=== PATIENT | male | born 1960 | race Caucasian/White ===

== ENCOUNTER 2024-11-03 08:36 | Emergency (ER) | payer MEDICARE, SELFPAY ==
--- NOTE | ~2024-11-03 | XR_ITS ---
EXAMINATION: XR chest 2V DATE: 11/03/2024 09:24 INDICATION: Cough. TECHNIQUE: Frontal and lateral views of the chest were obtained. COMPARISON: None. FINDINGS: There is no pneumonia, pleural effusion, or pneumothorax. The heart size is normal. IMPRESSION: 1. No acute cardiopulmonary disease. Reviewed, dictated and finalized at location A. [facility]
--- OUTSIDE RECORDS SUMMARY | 2024-11-03 08:39 | XMS_ITS | CONTINUITY OF CARE DOCUMENT ---
Author Name grover ness Address Unknown Organization [facility] Office Address [address] [place] [address] Phone [phone] Care Team Providers Care Obgyn Nurse Name Role Phone grover ness Unavailable Unavailable
--- OUTSIDE RECORDS SUMMARY | 2024-11-03 08:45 | XMS_ITS | CONTINUITY OF CARE DOCUMENT ---
Author Name grover ness Address Unknown Organization [facility] Office Address [address] [place] [address] Phone [phone] Care Team Providers Care Gas Engineer Name Role Phone grover ness Unavailable Unavailable
--- OUTSIDE RECORDS SUMMARY | 2024-11-03 08:45 | XMS_ITS | Clinical Summary ---
Author Organization [facility] Address [address] [place] [address] Phone Care Team Providers Care Edge Dyer Name Role Phone Allan Denton MD Primary Care Provider [phone] Allergies No known active allergies Medications labetalol (NORMODYNE) 200 MG Tablet Take by mouth daily. Active pravastatin (PRAVACHOL) 20 MG Tablet Take by mouth daily. Active lisinopril (PRINIVIL, ZESTRIL) 10 MG Tablet Take by mouth daily. Active lisinopril (PRINIVIL, ZESTRIL) 20 MG Tablet 08/29/2021 Active ASPIRIN 81 PO Take by mouth daily. Active Active Problems Problem Noted Date Diagnosed Date Nicotine dependence Overview (08/12/2015): Continuous Inguinal hernia unilateral, non-recurrent Overview (08/12/2015): Without mention of obstruction or gangrene, left Immunizations Immunization Administration Dates Next Due Influenza Vaccine 11/06/2013 Social History Tobacco Use Types Packs/Day Years Used Date Smoking Tobacco: Former Cigarettes Smokeless Tobacco: Never Alcohol Use Standard Drinks/Week Comments Yes 0 (1 standard drink = 0.6 oz pur e alcohol) Rarely Sex and Gender Information Value Date Recorded Sex Assigned at Not on file Legal Sex Male 8:06 PM CDT Gender Identity Not on file Sexual Orientation Not on file Last Filed Vital Signs Vital Sign Reading Time Taken Comments Blood Pressure 156/88 09/07/2021 2:56 PM CANDY CUTTER HAND Pulse 64 09/07/2021 2:56 PM CANDY CUTTER HAND Temperature 36.2 C (97.1 F) 09/07/2021 2:56 PM CANDY CUTTER HAND Respiratory Rate 14 09/07/2021 2:56 PM CANDY CUTTER HAND Oxygen Saturation 98% 09/07/2021 2:56 PM CANDY CUTTER HAND Inhaled Oxygen Concentration - - Weight 88.5 kg (195 lb) 09/07/2021 2:56 PM CANDY CUTTER HAND Height 177.8 cm (5' 10 ) 09/07/2021 2:56 PM CANDY CUTTER HAND Body Mass Index 27.98 09/07/2021 2:56 PM CANDY CUTTER HAND Plan of Treatment Health Maintenance Due Date Last Done Comments Hepatitis C Virus (HCV) Screening 1960 TdaP Immunization 1958 Colonoscopy 2003 Colorectal Cancer Screening 2003 Cologuard 2008 Immunochemical Fecal Occult Blood 2008 Pneumococcal Immunization (5 0+ years) (1 of 1 - PCV) 2008 Zoster Immunization (1 of 2) 2008 PSA Discussion 2013 Influenza Immunization (#1) 2024 11/06/2013 SARS-COV-2 Immunization ( season) 2024 11/24/2020, 10/21/2020 Respiratory Syncytial Virus (RSV) Immunization (Adult) (1 - 1-dose 75+ series) 2033 Hepatitis B Immunization Aged Out No longer eligible based on patient's age to complete this topic Meningococcal Immunization (ACWY) Aged Out No longer eligible b ased on patient's age to complete this topic Rotavirus Immunization Aged Out No lo nger eligible based on patient's age to complete this topic Care Teams Edge Dyer Relationship Specialty Start Date End Date Allan [place] [address] PCP - General Internal Medicine 09/07/21
--- OUTSIDE RECORDS SUMMARY | 2024-11-03 08:45 | XMS_ITS | Encounter Summary ---
Author Organization [facility] Address 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
--- OUTSIDE RECORDS SUMMARY | 2024-11-03 08:45 | XMS_ITS | Clinical Summary ---
Author Organization [facility] Address [address] Attn: Epic Prelude ADT OBED JARQUIN [address] Care Team Providers Care Packaging Supervisor Name Role Phone Unavailable Primary Care Provider Unavailabl e Allergies Active Allergy Reactions Criticality Noted Date Comments No Known Allergies 12/23/2003 Medications LOVASTATIN 40 MG TAB 1 Every Day 30.00 3 01/04/2006 Active LABETALOL 100 MG TAB 1/2 Two Times A Day 30.00 0 07/03/2006 Active ZOCOR 40 MG TAB 1 Every Day 90.00 3 12/15/2005 Active Active Problems Problem Noted Date Diagnosed Date Tobacco use disorder 03/23/2004 Other and unspecified hyperlipidemia 01/13/2004 Undiagnosed cardiac murmurs 01/13/2004 Unspecified essential hypertension 12/23/2003 Resolved Problems Problem Noted Date Diagnosed Date Resolved Date Headache(784.0) 12/23/2003 02/26/2008 Acute nasopharyngitis (common cold) 12/23/2003 02/26/2008 Social History Tobacco Use Types Packs/Day Years Used Date Smoking Tobacco: Never Assessed Sex and Gender Information Value Date Recorded Sex Assigned at Not on file 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 Gender Identity Not on file Sexual Orientation Not on file Last Filed Vital Signs Vital Sign Reading Time Taken Comments Blood Pressure 120/70 03/23/2004 1:45 PM CDT Pulse - - Temperature - - Respiratory Rate - - Oxygen Saturation - - Inhaled Oxygen Concentration - - Weight 88 kg (194 lb) 03/23/2004 1:45 PM CDT Height - - Body Mass Index - - Plan of Treatment Health Maintenance Due Date Last Done Comments DTAP/TDAP/TD VACCINES (1 - Tdap) 1977 COLORECTAL SCREENING 2003 Colorectal Cancer Screening 2003 FIT-DNA Q 3 years 2003 FIT/FOBT Q 1 year 2003 Flex Sig/CT Colonography Q 5 years 2003 PNEUMOCOCCAL VACCINE 65+ YEARS (1 of 1 - PCV) 09/19/19 ZOSTER VACCINE (1 of 2) 2008 INFLUENZA VACCINE (#1) 2024 RSV VACCINE (60+ or ) (1 - 1-dose 75+ series) 2033
--- OUTSIDE RECORDS SUMMARY | 2024-11-03 08:46 | XMS_ITS | Encounter Summary ---
Author Organization [facility] Address 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
--- OUTSIDE RECORDS SUMMARY | 2024-11-03 08:46 | XMS_ITS | Encounter Summary ---
Author Organization [facility] Address 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 HISTORY: HISTORY: 272.4-HYPERLIPIDEMIA Currently the patient is off all medication. 305.1-TOBACCO ABUSE The patient continues to smoke regularly despite the awareness that this is harmful. 401.9-HYPERTENSION, UNSPECIFIED The patient is tolerating the medication. PHYSICAL EXAMINATION: CONSTITUTIONAL: GENERAL APPEARANCE: Healthy appearing patient in no distress. NECK/THYROID: Trachea midline. No thyroid enlargement, tenderness, or mass. No supraclavicular or cervical adenopathy. RESPIRATORY: Clear to auscultation and percussion. Normal respiratory effort. CARDIOVASCULAR: CARDIAC: Regular rhythm. No murmurs, rubs, or gallops. ARTERIAL: Aortic pulses of normal amplitude with no bruits. EDEMA/VARICOSITIES OF EXTREMITIES: No edema or varicosities. GASTROINTESTINAL: ABDOMEN: Soft, non-tender, without masses. Bowel sounds active. LIVER/SPLEEN/KIDNEY: No hepatosplenomegaly, tenderness or nodularity. Kidneys not palpable. ASSESSMENT/PLAN: 272.4-HYPERLIPIDEMIA refill med 305.1-TOBACCO ABUSE rec cessation 401.9-HYPERTENSION, UNSPECIFIED cont med, rec repeat echo, pt wants to wait until ins LAB ORDERS: 3Mo Order number: [id number] Test Ordered: ALT 823 Order number: [id number] Test Ordered: LIPID PANEL 7600 Order number: [id number] Test Ordered: BASIC METABOLIC PANEL W/ GLOMERULAR FILTRATION RATE, ESTIMATED (EGFR) [id number] pt qu sleep apnea sx, consider sleep study RETURN VISIT : Patient instructed to return in 3 months. Electronically Signed by: Gabriele Toussaint MD on December documented in this encounter Plan of Treatment Not on file documented as of this encounter Visit Diagnoses Not on filedocumented in this encounter
--- OUTSIDE RECORDS SUMMARY | 2024-11-03 08:46 | XMS_ITS | Referral Summary ---
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 Phone Allan Denton MD Primary Care Provider [phone] Encounters Date Type Department Care Team Description 11/01/2024 Orders Only [facility] [address] [phone] Allan Denton MD 10/31/2024 Telephone [facility] [address] [phone] Allan Denton MD Symptom Based Call 09/30/2024 Telephone [facility] Gastroenterology at [address] [place] [phone] Godfrey Quesada MA 09/24/2024 11:15 AM WINDOWS ADMINISTRATOR Anesthesia Event [address] [address] Mariajose Stack MD 09/24/2024 10:30 AM WINDOWS ADMINISTRATOR - 09/24/2024 11:00 AM WINDOWS ADMINISTRATOR Surgery [address] [address] Donato Morley, DO COLON REMOVAL SNARE 09/24/2024 9:24 AM WINDOWS ADMINISTRATOR - 09/24/2024 12:49 PM WINDOWS ADMINISTRATOR Hospital Encounter [address] [address] Donato Morley, Encounter for screening colonoscopy Discharge Disposition: Discharge to home or self care 09/18/2024 Telephone [facility] Gastroenterology at [facility] [address] [facility] [address] [place] [phone] Godfrey Quesada MA 09/10/2024 10:02 AM WINDOWS ADMINISTRATOR - 09/10/2024 11:59 PM WINDOWS ADMINISTRATOR Hospital Encounter [facility] [address] [place] [address] Abdominal pain Discharge Disposition: Discharge to home or self care 09/09/2024 Telephone [facility] [address] [place] [address] Sara Camarillo 08/16/2024 Telephone [facility] [address] [place] [phone] Allan Denton MD 08/13/2024 10:15 AM WINDOWS ADMINISTRATOR Lab [facility] [address] [place] [phone] Essential hypertension; Abdominal pain 08/13/2024 9:30 AM WINDOWS ADMINISTRATOR Office Visit [facility] [address] [place] [phone] Sara Zambrano NP Essential hypertension (Primary Dx); Abdominal pain; Mixed hyperlipidemia; Right elbow pain; Thumb pain, left; History of lymphoma; Class 1 obesity due to excess calories with serious comorbidity and body mass index (BMI) of 30.0 to 30.9 in adult from Last 3 Months Allergies No known active allergies Medications atorvastatin (LIPITOR) 20 mg tablet Take 1 tablet (20 mg total) by mouth daily 90 tablet 4 4 01/29/20 25 Active lisinopriL (PRINIVIL,ZESTRIL ) 30 mg tabletIndications :Essential hypertension Take 1 tablet (30 mg total) by mouth daily 100 tablet 4 4 Active aspirin 81 mg enteric coated tablet Take by mouth daily Active hydroCHLOROthiazi de 12.5 mg tablet Take 1 tablet (12.5 mg total) by mouth daily 90 tablet 1 4 12/03/20 25 Active oseltamivir (TAMIFLU) 75 mg capsule Take 1 capsule (75 mg total) by mouth 2 (two) times a day for 5 days 10 capsule 5 11/06/19 25 Active Active Problems Problem Noted Date Diagnosed Date Abdominal pain 08/13/2024 Assessment & Plan (08/13/2024 2:47 PM WINDOWS ADMINISTRATOR): No palpable abnormality, nontender. Constant dull ache present for the past 1 week, located right of umbilicus. Not associated with meals. No changes in bowel patterns or weight. CT ordered today. Will check additional labs today. Instructed patient to follow up immediately or present to the ER if experiencing any new or worsening symptoms. Right elbow pain 08/13/2024 Assessment & Plan (08/13/2024 2:50 PM WINDOWS ADMINISTRATOR): No known injury. Patient reports he does frequently plays golf. Symptoms consistent with golfer's/tennis elbow. Recommended trial of meloxicam and will follow-up if no improvement History of lymphoma 08/13/2024 Assessment & Plan (08/13/2024 2:50 PM WINDOWS ADMINISTRATOR): Denies any fevers, night sweats, changes in appetite or weight loss. Mid back pain 07/12/2024 Assessment & Plan (07/12/2024 4:35 PM CDT): Trial meloxicam for the next few weeks and then can continue as needed. Also prescribed tizanidine every 6 hours p.r.n.. Encouraged patient to avoid aggravating activity. Will check x-ray and plan accordingly. Encounter for screening colonoscopy 06/28/2024 Colon cancer screening 01/29/2024 Assessment & Plan (07/12/2024 4:35 PM CDT): Updated referral to GI Assessment & Plan (01/29/2024 2:07 PM CDT): Referral to GI for screening colonoscopy. Encounter for Medicare annual wellness exam 01/10 Assessment & Plan (01/29/2024 2:08 PM CDT): Visit preventive in nature. We reviewed medications, chronic conditions, risk factors, lifestyle recommendations. Reviewed immunization recommendations. Follow-up in 1 year for annual wellness. Essential hypertension 01/29/2024 Assessment & Plan (08/13/2024 2:46 PM WINDOWS ADMINISTRATOR): Blood pressure is elevated today. Patient reports he took his medications this morning as prescribed, lisinopril 30 mg tablet. Discussed that uncontrolled blood pressure could be contributing to symptoms of fatigue as well as visual disturbance. He denies any chest pain or shortness and breath. Will add HCTZ 12.5 mg daily, encouraged patient to monitor BP at home. Can return to office in 1 week for nurse visit/BP check. Encouraged heart healthy lower sodium diet. Reviewed signs and symptoms warranting immediate evaluation. Assessment & Plan (01/29/2024 2:08 PM CDT): Above goal. Will increase lisinopril to 30 mg daily. Encouraged to monitor blood pressure at home. Red flags reviewed. Hyperlipidemia 01/25/2014 Overview (12/15/2016): HYPERLIPIDEMIA NEC/NOS Assessment & Plan (08/13/2024 2:49 PM WINDOWS ADMINISTRATOR): Concerned that symptoms may be related to change in statin, patient switched from pravastatin to atorvastatin 6 months ago. Encouraged increase water intake/hydration. Recommended 1st managing blood pressure and addressing abdominal pain prior to adjusting medications. If no improvement in joint pain with meloxicam will hold statin medication Assessment & Plan (01/29/2024 2:07 PM CDT): Not at goal. Will switch to atorvastatin. Monitor for side effects. Will recheck fasting lipid panel upon return. Keep up the great work with lifestyle changes! Former smoker 01/25/2014 Overview (12/17/2016): TOBACCO USE DISORDER Assessment & Plan (01/29/2024 2:08 PM CDT): Quit smoking 9 years ago. Hypertension 01/25/2014 Overview (12/17/2016): HYPERTENSION NOS Resolved Problems Problem Noted Date Diagnosed Date Resolved Date Need for influenza vaccination 01/29/2024 01/29/2024 Immunizations Immunization Administration Dates Next Due Influenza, Split 11/06/2013 Influenza, Unspecified 08/13/2024(Deferr ed: Patient Refused),06/18/2024(Deferred: Patient Refused),12/10/2023(Deferred: Patient Refused),06/11/2023(Deferred: Patient Refused),06/11/2023(Deferred: Patient Refused),06/11/2022(Deferred: Patient Refused),06/11/2022(Deferred: Patient Refused),06/11/2020(Deferred: Patient Refused),10/22/2019(Deferred: Patient Refused),09/11/2018(Deferred: Patient Refused),09/12/2016(Deferred: Patient Refused) Moderna SARS-CoV-2 Monovalen t Vaccination (12+ YRS) 11/24/2020,10/21/2020 Pneumococcal Conjugate Pcv20 01/29/2024(Deferred : Patient Refused) Social History Tobacco Use Types Packs/Day Years Used Date Smoking Tobacco: Former Smokeless Tobacco: Never Tobacco Cessation:Counseling Given: Not Answered Comments:Smoking History Packs/day: 1.5 Packs, Patient states that he chews nicotine gum 10/22/2019 Alcohol Use Standard Drinks/Week Comments Not Currently 0 (1 standard drink = 0.6 oz pur e alcohol) AUDIT-C Answer Date Recorded Q1: How often do you have a drink containing alc ohol? 2-3 times a week 09/24/2024 Q2: How many drinks containi ng alcohol do you have on a typical day when you are drinking? 3 or 4 09/24/2024 Frequency of Binge Drinking Not on file 09/11 PHQ-2 Answer Date Recorded PHQ-2 Total Score (If total score is 3 or more points, staff should administer the PHQ-9) 0 08/13/2024 Personal Safety Answer Date Recorded Have you ever been in or are you currently in a harmful physical or emotional relationship or is someone making you feel afraid or unsafe? Denies 09/24/2024 Sex and Gender Information Value Date Recorded Sex Assigned at Not on file Legal Sex Male 4:02 PM WINDOWS ADMINISTRATOR Gender Identity Not on file Sexual Orientation Not on file Last Filed Vital Signs Vital Sign Reading Time Taken Comments Blood Pressure 119/73 09/24/2024 12:25 PM WINDOWS ADMINISTRATOR Pulse 69 09/24/2024 12:25 PM WINDOWS ADMINISTRATOR Temperature 36.9 C (98.5 F) 09/24/2024 12:25 PM WINDOWS ADMINISTRATOR Respiratory Rate 18 09/24/2024 12:25 PM WINDOWS ADMINISTRATOR Oxygen Saturation 98% 09/24/2024 12:25 PM WINDOWS ADMINISTRATOR Inhaled Oxygen Concentration - - Weight 89.4 kg (197 lb) 09/24/2024 9:32 AM WINDOWS ADMINISTRATOR Height 175.3 cm (5' 9 ) 09/24/2024 9:32 AM WINDOWS ADMINISTRATOR Body Mass Index 29.09 09/24/2024 9:32 AM WINDOWS ADMINISTRATOR Plan of Treatment Not on file Procedures Procedure Name Priority Date/Time Associated Diagnosis Comments SURGICAL PATHOLOGY STAT 09/24/2024 11 :48 AM WINDOWS ADMINISTRATOR Encounter for screening colonoscopy ENDO ADD ON COLON BIOPSY 09/24/2024 11:10 AM WINDOWS ADMINISTRATOR Encounter for screening colonoscopy COLON REMOVAL SNARE 09/24/2024 1 1:10 AM WINDOWS ADMINISTRATOR Encounter for screening colonoscopy COLONOSCOPY 09/24/2024 9:[address] ABDOMEN PELVIS WO CONTRAST Schedule Routine, Read Routine (OP Routine) 09/10/2024 10:26 AM WINDOWS ADMINISTRATOR Abdominal pain EGFR Routine 08/13/2024 10:15 AM WINDOWS ADMINISTRATOR Abdominal pain Essential hypertension DIFFERENTIAL AUTO Routine 08/13/2024 10: 15 AM WINDOWS ADMINISTRATOR Abdominal pain Essential hypertension COMPREHENSIVE METABOLIC PANEL Routine 08/13/2024 10:15 AM WINDOWS ADMINISTRATOR Abdominal pain Essential hypertension CBC WITH AUTO DIFFERENTIAL Routine 08/13/2024 10:15 AM WINDOWS ADMINISTRATOR Abdominal pain Essential hypertension LIPASE Routine 08/13/2024 10:15 AM WINDOWS ADMINISTRATOR Abdominal pain AMYLASE Routine 08/13/2024 10:15 AM WINDOWS ADMINISTRATOR Abdominal pain TSH Routine 08/13/2024 10:15 AM WINDOWS ADMINISTRATOR Essential hypertension T4, FREE Routine 08/13/2024 10:15 AM WINDOWS ADMINISTRATOR Essential hypertension PSA SCREEN Routine 01/29/2024 2:06 PM CDT Prostate cancer screening from Last 3 Months or Most Recently Relevant to Health Maintenance Results * Surgical pathology (09/24/2024 11:48 AM WINDOWS ADMINISTRATOR) Tissue (Polyp(s), colon/colorectal, esophageal, gastric) 09/24/2024 11:48 AM WINDOWS ADMINISTRATOR Tissue (Polyp(s), colon/colorectal, esophageal, gastric) 09/24/2024 11:48 AM WINDOWS ADMINISTRATOR Tissue (Polyp(s), colon/colorectal, esophageal, gastric) 09/24/2024 11:48 AM WINDOWS ADMINISTRATOR Narrative PATHOLOGY [facility] - 09/26/2024 2:59 PM WINDOWS ADMINISTRATOR EPIC results best viewed via link to PDF [facility] Department of Pathology [address] [place] [address] Note to Patients: This report may contain a detailed description of human tissue sent by a health care provider to the laboratory for pathologic evaluation. The content of this report is essential for diagnosis and may provide important critical findings. This information may be unfamiliar to patients to review without a medical professional present. It is advised that the patient review this report in the presence of a health care provider who can answer questions and explain the details. Final Report Patient Name: NASIR FORD Address: [address] [place] [address] Gender: M : 1960 (Age: 64) Service: Gastro Location: [facility] #: [id number] Patient Type: [facility] Taken: 09/24/2024 Received: 09/25/2024 Accessioned: 09/25/2024 Reported: 09/26/2024 Physician(s):Dr. Donato Morley, D.O. Diagnosis: A. Ascending colon polyp, biopsy: - Tubular adenoma. - Negative for high-grade dysplasia. B. Descending colon polyp, biopsy: - Mucosal tag. C. Sigmoid colon polyp x2, biopsy: - Hyperplastic polyp x2. Abram Alejandre M.D. Report Electronically Reviewed and Signed Out By Abram Alejandre M.D. 09/26/2024 14:59:03 Specimen(s) Received: A: Ascending polyp x 1 B: Descending polyp x 1 C: Sigmoid polyp x 2 Microscopic Description: A. Sections show a tubular adenoma. There is no evidence of high-grade dysplasia or invasive carcinoma. B. Sections show fragments of benign colonic mucosa. There is no evidence of hyperplastic change or dysplasia. The findings are most consistent with a mucosal tag. C. Sections show a hyperplastic polyp x2. No features of a sessile serrated adenoma are seen. There is no evidence of dysplasia or malignancy. Clinical History: Screening colonoscopy. Gross Description: The specimen is submitted in three formalin containers labeled NASIR FORD . A. The first container is labeled ascending polyp . It is a 2 mm rios tissue fragment. All in A. B. The second container is labeled descending polyp . It is 1 strip of rios tissue measuring 1 cm. All in B. C. The third container is labeled sigmoid polyp x2 . It is 2 fragments of rios tissue between 3 and 4 mm. All in C. T.A. Gena Christy., P.A./Analia Persaud M.D. REPORT IMAGES AND SCANNED DOCUMENTS, IF INCLUDED, ONLY VIEWABLE IN PDF VERSION OF REPORT The performance characteristics of some immunohistochemical stains, fluorescence in-situ hybridization tests and immunophenotyping by flow cytometry cited in this report (if any) were determined by the Surgical Pathology Department at [facility] as part of an ongoing senior supplier quality engineer program and in compliance with federally mandated regulations drawn from the Clinical Laboratory Improvement Act of 1988 (CLIA '88). Some of these tests rely on the use of analyte specific reagents and are subject to specific labeling requirements by the US Food and Drug Administration. Such diagnostic tests may only be performed in a facility that is certified by the Department of Health and Human Services as a high complexity laboratory under CLIA '88. The FDA has determined that such clearance or approval is not necessary. This test is used for clinical purposes. It should not be regarded as investigational or for research. Nevertheless, federal rules concerning the medical use of analyte specific reagents require that the following disclaimer be attached to the report: This test was developed and its performance characteristics determined by the Surgical Pathology Department [facility]. It has not been cleared or approved by the U. S. Food and Drug Administration. Note for decalcified specimens: This assay has not been validated on decalcified tissues. Results should be interpreted with caution given the possibility of false negativity on decalcified specimens Donato Morley DO LAB PATHOLOGY ORDERABLES Final Result PATHOLOGY [facility] [address] [place] [address] * Colonoscopy (09/24/2024 9:25 AM WINDOWS ADMINISTRATOR) Anatomical Region Laterality Modality Other Narrative Procedure Note Donato Morley DO - 09/24/2024 9:25 AM CST [facility] Patient Name: Nasir Ford Procedure Date: 09/24/2024 9:25 AM Date of : 1960 Admit Type: Outpatient Age: 64 Gender: Male Attending MD: Donato Morley D.O. Room: [facility] END[facility]COPY ROOM 2 Note Status: Finalized Patient Profile: Refer to note in patient chart for documentation of history and physical. Procedure: Colonoscopy Indications: Screening for colorectal malignant neoplasm, Thisis the patient's first colonoscopy Referring MD: Allan Denton M.D. Providers: Donato Morley D.O. Impression: - The examined portion of the ileum was normal. - One 4 mm polyp in the proximal ascending colon, removed with a cold snare. Resected andretrieved. - One 5 mm polyp in the descending colon, removedwith a cold snare. Resected and retrieved. - Two 2 to 3 mm polyps in the sigmoid colon,removed with a jumbo cold forceps. Resected andretrieved. - Internal hemorrhoids. Recommendation: - Discharge patient to home. - Resume previous diet. - Continue present medications. - Await pathology results. - Repeat colonoscopy date to be determined after pending pathology results are reviewed for surveillance. - Return to primary care physician PRN. Medicines: Monitored Anesthesia Care Complications: No immediate complications. Estimated Blood Loss: Estimated blood loss was minimal. Procedure: Pre-Anesthesia Assessment: - As per anesthesia. The benefits, risks and alternatives of theprocedure and sedation were discussed and informed consentwas obtained. All questions were answered. Please referto the signed informed consent document in the medical record. The bowel preparation used was Miralax and bisacodyl tablets via split dose instruction. The scope was passed under direct vision. TheColonoscope [id number] was introduced through the anus and advanced to the 5 cm into the ileum. The colonoscopy was performed without difficulty. The patient tolerated the procedure well. The qualityof the bowel preparation was good. The terminal ileum, ileocecal valve, appendiceal orifice, and rectumwere photographed. Findings: The perianal and digital rectal examinations were normal. The terminal ileum appeared normal. A 4 mm polyp was found in the proximal ascending colon. The polyp was removed with a cold snare. Resection and retrieval were complete. A 5 mm polyp was found in the descending colon. The polyp was removed with a cold snare. Resection and retrieval were complete. Two polyps were found in the sigmoid colon. The polyps were 2 to 3 mmin size. These polyps were removed with a jumbo cold forceps. Resectionand retrieval were complete. Internal hemorrhoids were found. The hemorrhoids were small. No additional abnormalities were found on retroflexion. Electronically signed by Donato Morley M.D. Donato Morley D.O. 09/24/2024 11:52:56 AM Number of Addenda: 0 Note Initiated On: 09/24/2024 9:25 AM Procedure Code(s): --- Professional --- 61607, Colonoscopy, flexible; with removal of tumor(s), polyp(s), or other lesion(s) by snare technique 31012, 59, Colonoscopy, flexible; with biopsy, single or multiple --- Technical --- 79154, Colonoscopy, flexible; with removal of tumor(s), polyp(s), or other lesion(s) by snare technique 73306, 59, Colonoscopy, flexible; with biopsy, single or multiple Diagnosis Code(s): --- Professional --- Z12.11, Encounter for screening for malignant neoplasm of colon K64.8, Other hemorrhoids D12.2, Benign neoplasm of ascending colon D12.4, Benign neoplasm of descending colon D12.5, Benign neoplasm of sigmoid colon --- Technical --- Z12.11, Encounter for screening for malignant neoplasm of colon K64.8, Other hemorrhoids D12.2, Benign neoplasm of ascending colon D12.4, Benign neoplasm of descending colon D12.5, Benign neoplasm of sigmoid colon CPT copyright 2020 [employer]. All rights reserved. The codes documented in this report are preliminary and upon lumber buyer reviewmay be revised to meet current compliance requirements. Recognized by the [employer] for promoting quality in endoscopy us Donato Morley DO ENDOSCOPY PROCEDURES Final Res ult * CT Abdomen Pelvis WO Contrast (09/10/2024 10:26 AM WINDOWS ADMINISTRATOR) Anatomical Region Laterality Modality Body N/A Computed Tomogra phy 09/15/2024 1:20 PM WINDOWS ADMINISTRATOR Narrative 09/15/2024 1:29 PM WINDOWS ADMINISTRATOR EXAM DESCRIPTION: CT ABDOMEN PELVIS WO CONTRAST REASON FOR STUDY: Abdominal pain, acute, nonlocalized RUQ pain for the last 4-5 weeks. TECHNIQUE: CT scan of the abdomen and pelvis performed without intravenous and without oral contrast using helical scanning technique. Reconstructed coronal and sagittal MPR images reviewed. All images stored on PACS. Automated exposure control was used as a dose optimization technique for this examination. COMPARISON: None FINDINGS: The sensitivity for detection of visceral lesions is diminished without the use of intravenous contrast. LOWER CHEST: There is atelectasis/scarring in the left lower lobe. No other significant pulmonary abnormalities. No effusion. LIVER: Normal size. There are numerous cysts in the liver. GALLBLADDER: Poorly distended. BILE DUCTS: No intrahepatic or extrahepatic ductal dilatation. SPLEEN: Normal size. No focal lesions. PANCREAS: No identified cystic or solid masses. No significant calcifications. No adjacent inflammation or peripancreatic fluid collections. Pancreatic duct not dilated. ADRENALS: Normal. KIDNEYS/URINARY TRACT: There is a 3.5 cm right renal cyst. A smaller cyst is present in the lower pole. No stones. No hydronephrosis or hydroureter. Urinary bladder is unremarkable. GI: No dilated bowel loops. No obvious wall thickening. Normal appendix. Scattered diverticular disease without diverticulitis. PERITONEUM: No ascites or free air. RETROPERITONEUM: No mass or adenopathy. REPRODUCTIVE: No significant abnormality. VASCULATURE: Atherosclerotic disease in the aorta and iliacs. MUSCULOSKELETAL: No significant abnormality. OTHER: Is an umbilical hernia containing fat. There is a large inguinal containing fat.. IMPRESSION: No evidence of acute disease in the abdomen or pelvis. Diverticulosis. Hepatic and renal cysts. Umbilical and right inguinal hernias containing fat. Additional findings as above. THIS IS AN ELECTRONICALLY VERIFIED FINAL REPORT 09/15/2024 1:29 PM - Electronically signed by Princess Church M.D. LL: SHIRLENE Report ID: [id number] Reading Location: [id number] Procedure Note Princess Church MD - 09/15/2024 EXAM DESCRIPTION: CT ABDOMEN PELVIS WO CONTRAST REASON FOR STUDY: Abdominal pain, acute, nonlocalized RUQ pain for the last 4-5 weeks. TECHNIQUE: CT scan of the abdomen and pelvis performed without intravenousand without oral contrast using helical scanning technique. Reconstructed coronal and sagittal MPR images reviewed. All images stored on PACS.Automated exposure control was used as a dose optimization technique for this examination. COMPARISON: None FINDINGS: The sensitivity for detection of visceral lesions is diminished withoutthe use of intravenous contrast. LOWER CHEST: There is atelectasis/scarring in the left lower lobe. Noother significant pulmonary abnormalities. No effusion. LIVER: Normal size. There are numerous cysts in the liver. GALLBLADDER: Poorly distended. BILE DUCTS: No intrahepatic or extrahepatic ductal dilatation. SPLEEN: Normal size. No focal lesions. PANCREAS: No identified cystic or solid masses. No significant calcifications. No adjacent inflammation or peripancreatic fluidcollections. Pancreatic duct not dilated. ADRENALS: Normal. KIDNEYS/URINARY TRACT: There is a 3.5 cm right renal cyst. A smallercyst is present in the lower pole. No stones. No hydronephrosis orhydroureter. Urinary bladder is unremarkable. GI: No dilated bowel loops. No obvious wall thickening. Normal appendix. Scattered diverticular disease without diverticulitis. PERITONEUM: No ascites or free air. RETROPERITONEUM: No mass or adenopathy. REPRODUCTIVE: No significant abnormality. VASCULATURE: Atherosclerotic disease in the aorta and iliacs. MUSCULOSKELETAL: No significant abnormality. OTHER: Is an umbilical hernia containing fat. There is a large inguinal containing fat.. IMPRESSION: No evidence of acute disease in the abdomen or pelvis. Diverticulosis. Hepatic and renal cysts. Umbilical and right inguinal hernias containing fat. Additional findings as above. THIS IS AN ELECTRONICALLY VERIFIED FINAL REPORT 09/15/2024 1:29 PM - Electronically signed by Princess Church M.D. LL: SHIRLENE Report ID: [id number] Reading Location: [place] [address] Sara Zambrano NP IMG CT PROCEDURES Final Res ult * eGFR (08/13/2024 10:15 AM WINDOWS ADMINISTRATOR) eGFR >90 >=60 mL/min/1. 73 m2 Comment: Interpretive Data Reference Interval Normal >/= 90 mL/min/1.73m2 Mildly decreased* 60 - 89 mL/min/1.73m2 Mildly to moderately decreased 45 - 59 mL/min/1.73m2 Moderately to severely decreased 30 - 44 mL/min/1.73m2 Severely decreased 15 - 29 mL/min/1.73m2 Kidney Failure < 15 mL/min/1.73m2 *Relative to young adult level Estimated glomerular filtration rate is determined by the 2020 CKD-EPI equation recommended by the National Kid[employer] (A Unifying Approach to GFR Estimation: Recommendations of the NKF-ASK Task Force on Reassessing the Inclusion of Race in Diagnosing Kidney Disease, JASN 2020). The CKD-EPI equation should not be used for patients with unstable renal function and has not been validated in children and those over 70. Current interpretive data was last reviewed 2021. Testing performed by: [address] [address] Blood 08/13/2024 10:1 5 AM WINDOWS ADMINISTRATOR 08/13/2024 3:53 PM WINDOWS ADMINISTRATOR Sara Zambrano POSTAL SORTING OFFICER LAB BLOOD ORDERABLES Final Result [facility] ([place]) 1 [facility] [place] [address] * Differential, auto (08/13/2024 10:15 AM WINDOWS ADMINISTRATOR) Neutrophil abs 3.6 1.5 - 6.5 K/cumm Comment:Testing performed by : [address] [address] Imm gran abs 0.0 0.0 - 0.1 K/cumm [facility] ([place]) Comment:Testing performed by : [facility], [address] [place] [address]., [address] Lymphocyte abs 1.3 0.8 - 3.3 K/cumm [facility] ([place]) Comment:Testing performed by : [facility], [address] [place] [address]., [address] Monocyte abs 0.4 0.2 - 0.8 K/cumm [facility] ([place]) Comment:Testing performed by : [address] [address] Eosinophil abs 0.1 0.0 - 0.5 K/cumm [facility] ([place]) Comment:Testing performed by : [facility], [address] [place] [address]., [address] Basophil abs 0.0 0.0 - 0.1 K/cumm [facility] ([place]) Comment:Testing performed by : [facility], [address] [place] [address]., [address] Neutrophil pct 65.6 % [facility] ([place]) Comment: Interpretive Data Percent cell count reference ranges are not reported, since discordance with absolute values may lead to misinterpretation of CBC data. Current Interpretive Data was last revised on 2017. Testing performed by: [facility], [address] [place] [address]., [address] Imm gran pct 0.2 % [facility] ([place]) Comment: Interpretive Data Percent cell count reference ranges are not reported, since discordance with absolute values may lead to misinterpretation of CBC data. Current Interpretive Data was last revised on 2017. Testing performed by: [facility], [address] [place] [address]., [address] Lymphocyte pct 23.1 % [facility] ([place]) Comment: Interpretive Data Percent cell count reference ranges are not reported, since discordance with absolute values may lead to misinterpretation of CBC data. Current Interpretive Data was last revised on 2017. Testing performed by: [address] [address] Monocyte pct 8.1 % [facility] ([place]) Comment: Interpretive Data Percent cell count reference ranges are not reported, since discordance with absolute values may lead to misinterpretation of CBC data. Current Interpretive Data was last revised on 2017. Testing performed by: [facility], [address] [place] [address]., [address] Eosinophil pct 2.4 % [facility] ([place]) Comment: Interpretive Data Percent cell count reference ranges are not reported, since discordance with absolute values may lead to misinterpretation of CBC data. Current Interpretive Data was last revised on 2017. Testing performed by: [address] [address] Basophil pct 0.6 % [facility] ([place]) Comment: Interpretive Data Percent cell count reference ranges are not reported, since discordance with absolute values may lead to misinterpretation of CBC data. Current Interpretive Data was last revised on 2017. Testing performed by: [address] [address] Blood 08/13/2024 10:1 5 AM WINDOWS ADMINISTRATOR 08/13/2024 2:56 PM WINDOWS ADMINISTRATOR Sara Zambrano POSTAL SORTING OFFICER LAB BLOOD ORDERABLES Final Result [facility] ([place]) 1 [facility] [place] [address] * CBC with auto differential (08/13/2024 10:15 AM WINDOWS ADMINISTRATOR) WBC 5.4 3.8 - 9.9 K/cumm Comment:Testing performed by : [address], [address] Hgb 13.7 13.0 - 17.5 g/dL [facility] ([place]) Comment:Testing performed by : [address], [address] Hct 41.7 38.9 - 50.3 % [facility] ([place]) Comment:Testing performed by : [address], [address] Plt 236 150 - 400 K/cumm [facility] ([place]) Comment:Testing performed by : [address], [address] MPV 10.5 9.1 - 12.3 fL [facility] ([place]) Comment:Testing performed by : [address], [address] RBC 4.52 4.30 - 5.80 M/cumm [facility] ([place]) Comment:Testing performed by : [address], [address] MCV 92.3 81.3 - 96.4 fL [facility] ([place]) Comment:Testing performed by : [address], [address] MCH 30.3 27.1 - 33.3 pg [facility] ([place]) Comment:Testing performed by : [facility], [address] [place] [address], [address] MCHC 32.9 32.3 - 35.7 g/dL [facility] ([place]) Comment:Testing performed by : [facility], [address] [place] [address], [address] RDW CV 11.9 11.1 - 14.9 % [facility] ([place]) Comment:Testing performed by : [facility], [address] [place] [address], [address] RDW SD 40.3 35.7 - 48.1 fL [facility] ([place]) Comment:Testing performed by : [facility], [address] [place] [address], [address] NRBC abs 0.00 0.00 - 0.01 K/cumm [facility] ([place]) Comment:Testing performed by : [facility], [address] [place] [address], [address] Blood 08/13/2024 10:1 5 AM WINDOWS ADMINISTRATOR 08/13/2024 2:56 PM WINDOWS ADMINISTRATOR Sara Zambrano POSTAL SORTING OFFICER LAB BLOOD ORDERABLES Final Result [facility] ([place]) 1 [facility] [employer] [place] [address] * TSH (08/13/2024 10:15 AM WINDOWS ADMINISTRATOR) Thyroid Stimulating Hormone 2.56 0.30 - 4.20 mcIUnit/mL Comment:Testing performed by : [facility], [address] [place] [address], [address] Blood 08/13/2024 10:1 5 AM WINDOWS ADMINISTRATOR 08/13/2024 2:56 PM WINDOWS ADMINISTRATOR Sara Zambrano POSTAL SORTING OFFICER LAB BLOOD ORDERABLES Final Result [facility] ([place]) 1 [facility] [place] [address] * T4, free (08/13/2024 10:15 AM WINDOWS ADMINISTRATOR) Free T4 1.14 0.90 - 1.70 ng/dL Comment:Testing performed by : [facility], [address] [place] [address], [address] Blood 08/13/2024 10:1 5 AM WINDOWS ADMINISTRATOR 08/13/2024 2:56 PM WINDOWS ADMINISTRATOR Sara Zambrano NP LAB BLOOD ORDERABLES Final Result [facility] ([place]) 1 [place] [address] * Lipase (08/13/2024 10:15 AM WINDOWS ADMINISTRATOR) Pathologist [facility] Lipase 20 10 - 99 Units/L Comment:Testing performed by : [address], [address] Blood 08/13/2024 10:1 5 AM WINDOWS ADMINISTRATOR 08/13/2024 2:56 PM WINDOWS ADMINISTRATOR Sara Zambrano POSTAL SORTING OFFICER LAB BLOOD ORDERABLES Final Result [facility] ([place]) 1 [facility] [place] [address] * Amylase (08/13/2024 10:15 AM WINDOWS ADMINISTRATOR) Amylase 44 30 - 99 Units/L Comment:Testing performed by : [address], [address] Blood 08/13/2024 10:1 5 AM WINDOWS ADMINISTRATOR 08/13/2024 2:56 PM WINDOWS ADMINISTRATOR Sara Zambrano NP LAB BLOOD ORDERABLES Final Result [facility] ([place]) 1 [facility] [place] [address] * Comprehensive metabolic panel (08/13/2024 10:15 AM WINDOWS ADMINISTRATOR) Sodium 138 135 - 145 mmol/L Comment:Testing performed by : [facility], [address] [place] [address]., [address] Potassium, pl 4.3 3.3 - 4.9 mmol/L [facility] ([place]) Comment:Testing performed by : [facility], [address] [place] [address]., [address] Chloride 101 97 - 110 mmol/L [facility] ([place]) Comment:Testing performed by : [facility], [address] [place] [address], [address] CO2 27 22 - 32 mmol/L [facility] ([place]) Comment:Testing performed by : [address], [address] Anion gap 10 2 - 15 mmol/L [facility] ([place]) Comment:Testing performed by : [address], [address] BUN 17 6 - 25 mg/dL [facility] ([place]) Comment:Testing performed by : [facility], [address] [place] [address], [address] Creatinine 0.88 0.80 - 1.30 mg/dL [facility] ([place]) Comment:Testing performed by : [address], [address] Glucose 95 70 - 199 mg/dL [facility] ([place]) Comment: Interpretive Data Fasting glucose >/= 126 mg/dl is diagnostic for diabetes. Fasting is defined as no caloric intake for at least 8 hours. Fasting glucose between 100 mg/dl to 125 mg/dl is diagnostic of prediabetes. In a patient with classic symptoms of hyperglycemia or hyperglycemic crisis, a random glucose >/= 200 mg/dl is diagnostic for diabetes. In the absence of unequivocal hyperglycemia, results should be confirmed by repeat testing. The classification and Diagnosis of Diabetes Diabetes Care 2021; 46: S19-S40. Current interpretive data was last revised 2022. Testing performed by: [address] [address] Calcium 9.7 8.5 - 10.3 mg/dL [facility] ([place]) Comment:Testing performed by : [address] [place]., [address] Bilirubin, total 0.4 0.1 - 1.2 mg/dL [facility] ([place]) Comment:Testing performed by : [address], [address] Protein, pl 7.4 6.5 - 8.5 g/dL [facility] ([place]) Comment:Testing performed by : [address], [address] Albumin 4.6 3.5 - 5.0 g/dL [facility] ([place]) Comment:Testing performed by : [address], [address] Alk phos 62 40 - 130 Units/L [facility] ([place]) Comment:Testing performed by : [address], [address] ALT 28 7 - 55 Units/L [facility] ([place]) Comment:Testing performed by : [address], [address] AST 24 10 - 50 Units/L [facility] ([place]) Comment:Testing performed by : [address], [address] Blood 08/13/2024 10:1 5 AM WINDOWS ADMINISTRATOR 08/13/2024 2:56 PM WINDOWS ADMINISTRATOR Sara Zambrano POSTAL SORTING OFFICER LAB BLOOD ORDERABLES Final Result [facility] ([place]) 1 [facility] Department [place] [address] * PSA screen (01/29/2024 2:06 PM CDT) PSA-Total 0.57 <=5.40 ng/mL Comment: Interpretive Data AGE SEX REFERENCE INTERVAL 0 minutes-150 years Female None 0 minutes-49 years Male None 50-59 years Male 0-3.90 60-69 years Male 0-5.40 70-79 years Male 0-6.20 80-150 years Male 0-6.20 The Patricia PSA Total assay procedure was used. Results from different manufacturers or methods may not be comparable. Serial testing should be performed using the same method. Current interpretive data last revised 22. Testing performed by: [facility], [address] [place] [address], [place]., [address] Blood 01/29/2024 2:06 PM CDT 01/29/2024 5:47 PM CDT Bisi Guadarrama POSTAL SORTING OFFICER LAB BLOOD ORDERABLES Final Result [facility] ([place]) 1 [facility] Department [place] [address] from Last 3 Months or Most Recently Relevant to Health Maintenance Insurance [employer] MED[employer]ARE [employer] [facility] Address: [address] [address] Advance Directives For more information, please contact: [phone] * Full Code (Latest Code Status on File) Date Activated Date Inactivated Comments 09/24/2024 9:28 AM 09/24/2024 4:49 PM * Full Code Date Activated Date Inactivated Comments 09/24/2024 9:28 AM 09/24/2024 9:28 AM Care Teams Geothermal Sheet Metal Worker Relationship Specialty Start Date End Date Allan Denton MD [address] [place] [address] [facility] - General 05/18/11
--- OUTSIDE RECORDS SUMMARY | 2024-11-03 08:46 | XMS_ITS | Encounter Summary ---
Author Organization [facility] Address 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
--- OUTSIDE RECORDS SUMMARY | 2024-11-03 08:46 | XMS_ITS | Encounter Summary ---
Author Organization [facility] Address 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 WHO CALLED: Pharmacy called. PHARMACY NUMBER: [phone] SECTION 1: REQUESTED ACTION [email or web address] 01/04/06 at 01:45 pm: MEDICATION REQUEST: Patient requests a change in current medication. zocor very $$$ wants to change to something less $$$ DOCTOR`S RESPONSE: darling 01/04/06 at 01:53 pm MEDICATIONS: Call in to Pharmacy LOVASTATIN ORAL TABLET 40 MG, 1 Every Day, 30 Dispensed, 3 Fills, status: NEW PRESCRIPTION, 01/04/2006. FINAL ACTION: [email or web address] 01/04/06 at 02:26 pm Called pharmacy at 01/04/06 at 02:26 pm. documented in this encounter Plan of Treatment Not on file documented as of this encounter Visit Diagnoses Not on filedocumented in this encounter
--- OUTSIDE RECORDS SUMMARY | 2024-11-03 08:46 | XMS_ITS | Encounter Summary ---
Author Organization [facility] Address 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
--- OUTSIDE RECORDS SUMMARY | 2024-11-03 08:46 | XMS_ITS | Encounter Summary ---
Author Organization [facility] Address [address] [place] [address] Care Team Providers Care Industrial Electrical Engineer Name Role Phone Unavailable Primary Care Provider Unavailabl e Encounter Details Date Type Department Care Team (Late st Contact Info) Description 12/23/2003 Outpatient Historical [facility] Internal Medicine [address] [phone] Gabriele Toussaint MD [address] [place] [phone] Social History Tobacco Use Types Packs/Day Years Used Date Smoking Tobacco: Never Assessed Sex and Gender Information Value Date Recorded Sex Assigned at Not on file 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
--- OUTSIDE RECORDS SUMMARY | 2024-11-03 08:46 | XMS_ITS | Clinical Summary ---
Author Organization [facility] [address] Address [address] [place] [phone] Care Team Providers Care Paper Twister Tender Name Role Phone Allan Denton MD Primary Care Provider [phone] Allergies No known active allergies Medications atorvastatin [...] by mouth daily 90 tablet 1 4 08/13/20 25 Active oseltamivir (TAMIFLU) 75 mg capsule Take 1 capsule (75 mg total) by mouth 2 (two) times a day for 5 days 10 capsule 5 11/06/19 25 Active Active Problems Problem Noted Date Diagnosed Date Abdominal pain 08/13/2024 Assessment & Plan (08/13/2024 2:47 PM CORPORATE TREASURER): No palpable abnormality, nontender. Constant dull ache [...] 08/13/2024 Assessment & Plan (08/13/2024 2:50 PM CORPORATE TREASURER): No known injury. Patient reports he does frequently plays golf. Symptoms consistent with golfer's/tennis elbow. Recommended trial of meloxicam and will follow-up if no improvement History of lymphoma 08/13/2024 Assessment & Plan (08/13/2024 2:50 PM CORPORATE TREASURER): Denies any fevers, night sweats, changes in [...] 01/29/2024 Assessment & Plan (08/13/2024 2:46 PM CORPORATE TREASURER): Blood pressure is elevated today. Patient reports [...] NEC/NOS Assessment & Plan (08/13/2024 2:49 PM CORPORATE TREASURER): Concerned that symptoms may be related to [...] Date Need for influenza vaccination 01/29/2024 01/29/2024 Encounters Date Type Department Care Team Description 11/01/2024 Orders Only [facility] [address] [address] Allan Denton MD 10/31/2024 Telephone [facility] [address] [phone] Allan Denton MD Symptom Based Call 09/30/2024 Telephone [facility] G[facility]ology at [address] [place] [address] Godfrey Quesada MA 09/24/2024 11:15 AM CORPORATE TREASURER Anesthesia Event [address] [address] Mariajose Stack MD 09/24/2024 10:30 AM CORPORATE TREASURER - 09/24/2024 11:00 AM CORPORATE TREASURER Surgery [address] [address] Donato Morley, DO COLON REMOVAL SNARE 09/24/2024 9:24 AM CORPORATE TREASURER - 09/24/2024 12:49 PM CORPORATE TREASURER Hospital Encounter [address] [address] Donato Morley, Encounter for screening colonoscopy Discharge Disposition: Discharge to home or self care 09/18/2024 Telephone [facility] G[facility] at [address] [place] [address] Godfrey Quesada MA 09/10/2024 10:02 AM CORPORATE TREASURER - 09/10/2024 11:59 PM CORPORATE TREASURER Hospital Encounter [address] [address] Abdominal pain Discharge Disposition: Discharge to home or self care 09/09/[address] [address] Sara Camarillo 08/16/2024 Telephone [facility] [address] [address] Allan Denton MD 08/13/2024 10:15 AM CORPORATE TREASURER Lab [facility] [address] [place] [address] Essential hypertension; Abdominal pain 08/13/2024 9:30 AM CORPORATE TREASURER Office Visit [facility] [address] [phone] Sara Zambrano NP Essential hypertension (Primary Dx); Abdominal pain; Mixed hyperlipidemia; Right elbow pain; Thumb pain, left; History of lymphoma; Class 1 obesity due to excess calories with serious comorbidity and body mass index (BMI) of 30.0 to 30.9 in adult from Last 3 Months Immunizations Immunization Administration Dates Next Due Influenza, Split 11/06/2013 Influenza, Unspecified 08/13/2024(Deferr ed: Patient Refused),06/18/2024(Deferred: Patient Refused),12/10/2023(Deferred: Patient Refused),06/11/2023(Deferred: Patient Refused),06/11/2023(Deferred: Patient Refused),06/11/2022(Deferred: Patient Refused),06/11/2022(Deferred: Patient Refused),06/11/2020(Deferred: Patient Refused),10/22/2019(Deferred: Patient Refused),09/11/2018(Deferred: Patient Refused),09/12/2016(Deferred: Patient Refused) Moderna SARS-CoV-2 Monovalen t Vaccination (12+ YRS) 11/24/2020,10/21/2020 Pneumococcal Conjugate Pcv20 01/29/2024(Deferred : Patient Refused) Surgical History Surgery Date Site/Laterality Comments COLONOSCOPY 09/24/2024 1st SHOULDER SURGERY 09/11/2010 - 09/10/2011 Right Medical History Medical History Date Comments HTN (hypertension) HLD (hyperlipidemia) Covid-19 Large cell lymphoma (HCC) Chemo/ RTX Adenomatous colon polyp Family History Medical History Relation Name Comments Heart disease Father Breast cancer Mother Relation Name Status Comments Father (Age 63) Mother Alive Social History Tobacco Use Types Packs/Day Years [...] on file Legal Sex Male 4:02 PM CORPORATE TREASURER Gender Identity Not on file Sexual Orientation Not on file Obstetrics History Last Filed Vital Signs Vital Sign Reading Time Taken Comments Blood Pressure 119/73 09/24/2024 12:25 PM CORPORATE TREASURER Pulse 69 09/24/2024 12:25 PM CORPORATE TREASURER Temperature 36.9 C (98.5 F) 09/24/2024 12:25 PM CORPORATE TREASURER Respiratory Rate 18 09/24/2024 12:25 PM CORPORATE TREASURER Oxygen Saturation 98% 09/24/2024 12:25 PM CORPORATE TREASURER Inhaled Oxygen Concentration - - Weight 89.4 kg (197 lb) 09/24/2024 9:32 AM CORPORATE TREASURER Height 175.3 cm (5' 9 ) 09/24/2024 9:32 AM CORPORATE TREASURER Body Mass Index 29.09 09/24/2024 9:32 AM CORPORATE TREASURER Plan of Treatment Health Maintenance Due Date Last Done Comments Hepatitis C Screening 1960 DTaP/Tdap/Td Vaccine (1 - Tdap) 1969 Hepatitis B Screening 1976 Zoster Vaccine (1 of 2) 1977 Covid-19 Vaccine (3 - Moderna risk series) 12/22/2020 11/24/2020, 10/21/2020 Well Visit 65+ 01/28/2025 01/29/2024, 02/17/2021 Influenza Vaccine (#1) 2025 11/06/2013 Postp oned from 05/12/2024 (Patient declined, but will receive in the future) Pneumococcal vaccine 65+ (1 of 2 - PCV) 06/18/2025 Postponed from 1977 (Patient declined, but will receive in the future) Depression Screening 08/13/2025 08/13/2024, 06/18/2024, 01/29/2024, Additional history exists Fall Risk Assessment 09/24/2025 09/24/2024, 08/13/2024, 06/18/2024, Additional history exists Prostate Cancer Screening-PSA 01/28/2026 01/29/2024, 05/26/2022, 03/02/2021 Colon Cancer Screening-Colonoscopy 09/24/2034 09/24/2024 Abdominal Aortic Aneurysm (AAA) Screen Completed 09/10/2024 Colon Cancer Screening-CT Colonography Discontinued 09/24/2024 Colon Cancer Screening-DNA Stool Discontinued 09/24/2024 Colon Cancer Screening-FIT Discontinued 09/24/2024 Colon Cancer Screening-Sigmoidoscopy Discontinued 09/24/2024 Procedures Procedure Name Priority Date/Time Associated Diagnosis Comments SURGICAL PATHOLOGY STAT 09/24/2024 11 :48 AM CORPORATE TREASURER Encounter for screening colonoscopy ENDO ADD ON COLON BIOPSY 09/24/2024 11:10 AM CORPORATE TREASURER Encounter for screening colonoscopy COLON REMOVAL SNARE 09/24/2024 1 1:10 AM CORPORATE TREASURER Encounter for screening colonoscopy COLONOSCOPY 09/24/2024 9:[address] ABDOMEN PELVIS WO CONTRAST Schedule Routine, Read Routine (OP Routine) 09/10/2024 10:26 AM CORPORATE TREASURER Abdominal pain EGFR Routine 08/13/2024 10:15 AM CORPORATE TREASURER Abdominal pain Essential hypertension DIFFERENTIAL AUTO Routine 08/13/2024 10: 15 AM CORPORATE TREASURER Abdominal pain Essential hypertension COMPREHENSIVE METABOLIC PANEL Routine 08/13/2024 10:15 AM CORPORATE TREASURER Abdominal pain Essential hypertension CBC WITH AUTO DIFFERENTIAL Routine 08/13/2024 10:15 AM CORPORATE TREASURER Abdominal pain Essential hypertension LIPASE Routine 08/13/2024 10:15 AM CORPORATE TREASURER Abdominal pain AMYLASE Routine 08/13/2024 10:15 AM CORPORATE TREASURER Abdominal pain TSH Routine 08/13/2024 10:15 AM CORPORATE TREASURER Essential hypertension T4, FREE Routine 08/13/2024 10:15 AM CORPORATE TREASURER Essential hypertension PSA SCREEN Routine 01/29/2024 2:06 PM CDT Prostate cancer screening from Last 3 Months or Most Recently Relevant to Health Maintenance Results * Surgical pathology (09/24/2024 11:48 AM CORPORATE TREASURER) Tissue (Polyp(s), colon/colorectal, esophageal, gastric) 09/24/2024 11:48 AM CORPORATE TREASURER Tissue (Polyp(s), colon/colorectal, esophageal, gastric) 09/24/2024 11:48 AM CORPORATE TREASURER Tissue (Polyp(s), colon/colorectal, esophageal, gastric) 09/24/2024 11:48 AM CORPORATE TREASURER Narrative PATHOLOGY [facility] - 09/26/2024 2:59 PM CORPORATE TREASURER EPIC results best viewed via link to PDF [facility] Department of Pathology [address] [place] [address] Note to Patients: This report may contain [...] Final Report Patient Name: NASIR FORD Address: [address] [place] [address] Gender: M : 1960 (Age: 64) Service: Gastro Location: [facility] Hospital #: [id number] Patient [facility] Taken: 09/24/2024 Received: 09/25/2024 Accessioned: 09/25/2024 Reported: 09/26/2024 Physician(s):Dr. Donato Morley DRicky. Diagnosis: A. Ascending colon polyp, biopsy: - [...] determined by the Surgical Pathology Department at [facility] as part of an ongoing water quality specialist program and in compliance with federally mandated [...] characteristics determined by the Surgical Pathology Department [facility]. It has not been cleared or approved by the U. S. Food and Drug Administration. Note for decalcified specimens: This assay has not been validated on decalcified tissues. Results should be interpreted with caution given the possibility of false negativity on decalcified specimens us Donato Morley DO LAB PATHOLOGY ORDERABLES Final Result PATHOLOGY [facility] [address] [place] [address] * Colonoscopy (09/24/2024 9:25 AM CORPORATE TREASURER) Anatomical Region Laterality Modality Other Narrative Procedure Note Donato Morley DO - 09/24/2024 9:25 AM CST [facility] Patient Name: Nasir Ford Procedure Date: 09/24/2024 9:25 AM Date of : 1960 Admit Type: Outpatient Age: 64 Gender: Male Attending MD: Donato Morley D.O. Room: [facility] ENDOSCOPY ROOM 2 Note Status: Finalized Patient [...] scope was passed under direct vision. TheColonoscope [id number] was introduced through the anus and advanced [...] found on retroflexion. Electronically signed by Donato T. Klucka, M.D. Donato Morley D.O. 09/24/2024 11:52:56 AM Number of Addenda: 0 Note Initiated On: 09/24/2024 9:25 AM Procedure Code(s): --- Professional --- 51822, Colonoscopy, flexible; with removal of tumor(s), polyp(s), or other lesion(s) by snare technique 53883, 59, Colonoscopy, flexible; with biopsy, single or multiple --- Technical --- 34414, Colonoscopy, flexible; with removal of tumor(s), polyp(s), or other lesion(s) by snare technique 50604, 59, Colonoscopy, flexible; with biopsy, single or [...] neoplasm of sigmoid colon CPT copyright 2020 [employer]. All rights reserved. The codes documented in this report are preliminary and upon raw products director reviewmay be revised to meet current compliance requirements. Recognized by the [employer] for promoting quality in endoscopy Donato Morley DO ENDOSCOPY PROCEDURES Final Res ult * CT Abdomen Pelvis WO Contrast (09/10/2024 10:26 AM CORPORATE TREASURER) Anatomical Region Laterality Modality Body N/A Computed Tomogra phy 09/15/2024 1:20 PM CORPORATE TREASURER Narrative 09/15/2024 1:29 PM CORPORATE TREASURER EXAM DESCRIPTION: CT ABDOMEN PELVIS WO CONTRAST [...] Princess Church M.D. LL: SHIRLENE Report ID: [id number] Reading Location: [id number] Procedure Note Princess Church MD - 09/15/2024 [...] Princess Church M.D. LL: SHIRLENE Report ID: [id number] Reading Location: [place] [address] Sara Zambrano STOREKEEPER ENGINEERING IMG CT PROCEDURES Final Res ult * eGFR (08/13/2024 10:15 AM CORPORATE TREASURER) eGFR >90 >=60 mL/min/1. 73 m2 Comment: [...] was last reviewed 2021. Testing performed by: [facility], [address] [place] [address]., [address] Blood 08/13/2024 10:1 5 AM CORPORATE TREASURER 08/13/2024 3:53 PM CORPORATE TREASURER Sara Zabmrano STOREKEEPER ENGINEERING LAB BLOOD ORDERABLES Final Result [facility] 1 [facility] Department [place] [address] * Differential, auto (08/13/2024 10:15 AM CORPORATE TREASURER) Neutrophil abs 3.6 1.5 - 6.5 K/cumm Comment:Testing performed by : [facility], [address] [place] [address], [id number] Imm gran abs 0.0 0.0 - 0.1 K/cumm [facility] Comment:Testing performed by : [address] [address] Lymphocyte abs 1.3 0.8 - 3.3 K/cumm [facility] Comment:Testing performed by : [address], [address] Monocyte abs 0.4 0.2 - 0.8 K/cumm [facility] Comment:Testing performed by : [facility], [address] [place] [address]., [address] Eosinophil abs 0.1 0.0 - 0.5 K/cumm [facility] Comment:Testing performed by : [address], [address] Basophil abs 0.0 0.0 - 0.1 K/cumm [facility] Comment:Testing performed by : [address] [address] Neutrophil pct 65.6 % [facility] Comment: Interpretive Data Percent cell count reference ranges are not reported, since discordance with absolute values may lead to misinterpretation of CBC data. Current Interpretive Data was last revised on 2017. Testing performed by: [address] [address] Imm gran pct 0.2 % [facility] Comment: Interpretive Data Percent cell count reference ranges are not reported, since discordance with absolute values may lead to misinterpretation of CBC data. Current Interpretive Data was last revised on 2017. Testing performed by: [address] [address] Lymphocyte pct 23.1 % [facility] Comment: Interpretive Data Percent cell count reference ranges are not reported, since discordance with absolute values may lead to misinterpretation of CBC data. Current Interpretive Data was last revised on 2017. Testing performed by: [address] [address] Monocyte pct 8.1 % [facility] Comment: Interpretive Data Percent cell count reference ranges are not reported, since discordance with absolute values may lead to misinterpretation of CBC data. Current Interpretive Data was last revised on 2017. Testing performed by: [address] [address] Eosinophil pct 2.4 % [facility] Comment: Interpretive Data Percent cell count reference ranges are not reported, since discordance with absolute values may lead to misinterpretation of CBC data. Current Interpretive Data was last revised on 2017. Testing performed by: [address] [address] Basophil pct 0.6 % [facility] Comment: Interpretive Data Percent cell count reference ranges are not reported, since discordance with absolute values may lead to misinterpretation of CBC data. Current Interpretive Data was last revised on 2017. Testing performed by: [address], [address] Blood 08/13/2024 10:1 5 AM CORPORATE TREASURER 08/13/2024 2:56 PM CORPORATE TREASURER Sara Zambrano STOREKEEPER ENGINEERING LAB BLOOD ORDERABLES Final Result [facility] 1 [facility] Department [place] [address] * CBC with auto differential (08/13/2024 10:15 AM CORPORATE TREASURER) WBC 5.4 3.8 - 9.9 K/cumm Comment:Testing performed by : [address], [address] Hgb 13.7 13.0 - 17.5 g/dL [facility] Comment:Testing performed by : [address], [address] Hct 41.7 38.9 - 50.3 % [facility] Comment:Testing performed by : [address], [address] Plt 236 150 - 400 K/cumm [facility] Comment:Testing performed by : [address], [address] MPV 10.5 9.1 - 12.3 fL [facility] Comment:Testing performed by : [address], [address] RBC 4.52 4.30 - 5.80 M/cumm [facility] Comment:Testing performed by : [address], [address] MCV 92.3 81.3 - 96.4 fL [facility] Comment:Testing performed by : [address], [address] MCH 30.3 27.1 - 33.3 pg [facility] Comment:Testing performed by : [address], [address] MCHC 32.9 32.3 - 35.7 g/dL [facility] Comment:Testing performed by : [facility], [address] [place] [address], [address] RDW CV 11.9 11.1 - 14.9 % [facility] Comment:Testing performed by : [facility], [address] [place] [address], [address] RDW SD 40.3 35.7 - 48.1 fL [facility] Comment:Testing performed by : [facility], [address] [place] [address], [address] NRBC abs 0.00 0.00 - 0.01 K/cumm [facility] Comment:Testing performed by : [facility], [address] [place] [address], [address] Blood 08/13/2024 10:1 5 AM CORPORATE TREASURER 08/13/2024 2:56 PM CORPORATE TREASURER Sara Zambrano STOREKEEPER ENGINEERING LAB BLOOD ORDERABLES Final Result [facility] 1 [facility] [employer] [place] [address] * TSH (08/13/2024 10:15 AM CORPORATE TREASURER) Pathologist [facility] Thyroid Stimulating Hormone 2.56 0.30 - 4.20 mcIUnit/mL Comment:Testing performed by : [address], [address] Blood 08/13/2024 10:1 5 AM CORPORATE TREASURER 08/13/2024 2:56 PM CORPORATE TREASURER Sara Zambrano STOREKEEPER ENGINEERING LAB BLOOD ORDERABLES Final Result [facility] 1 [facility] [employer] [place] [address] * T4, free (08/13/2024 10:15 AM CORPORATE TREASURER) Free T4 1.14 0.90 - 1.70 ng/dL Comment:Testing performed by : [facility], [address] [place] [address]., [address] Blood 08/13/2024 10:1 5 AM CORPORATE TREASURER 08/13/2024 2:56 PM CORPORATE TREASURER Sara Zambrano STOREKEEPER ENGINEERING LAB BLOOD ORDERABLES Final Result Performing Organization Address City/[facility]/ZIP Co de Phone Number [facility] ([place] [address] [place] [address] * Lipase (08/13/2024 10:15 AM CORPORATE TREASURER) Lipase 20 10 - 99 Units/L Comment:Testing performed by : [facility], [address] [place] [address], [address] Blood 08/13/2024 10:1 5 AM CORPORATE TREASURER 08/13/2024 2:56 PM CORPORATE TREASURER Sara Zambrano STOREKEEPER ENGINEERING LAB BLOOD ORDERABLES Final Result Performing Organization Address [facility] Co de Phone Number [facility] ([place] [address] [place] [address] * Amylase (08/13/2024 10:15 AM CORPORATE TREASURER) Amylase 44 30 - 99 Units/L Comment:Testing performed by : [address] [address] Blood 08/13/2024 10:1 5 AM CORPORATE TREASURER 08/13/2024 2:56 PM CORPORATE TREASURER Sara Zambrano STOREKEEPER ENGINEERING LAB BLOOD ORDERABLES Final Result Performing Organization Address [facility] Co de Phone Number [facility] ([place] [address] [place] [address] * Comprehensive metabolic panel (08/13/2024 10:15 AM CORPORATE TREASURER) Sodium 138 135 - 145 mmol/L Comment:Testing performed by : [address] [place] [address] Potassium, pl 4.3 3.3 - 4.9 mmol/L [facility] Comment:Testing performed by : [facility], [address] [place] [address], [address] Chloride 101 97 - 110 mmol/L [facility]) Comment:Testing performed by : [address], [address] CO2 27 22 - 32 mmol/L [facility] Comment:Testing performed by : [address], [address] Anion gap 10 2 - 15 mmol/L [facility]) Comment:Testing performed by : [address], [address] BUN 17 6 - 25 mg/dL [facility]) Comment:Testing performed by : [address], [address] Creatinine 0.88 0.80 - 1.30 mg/dL [facility]) Comment:Testing performed by : [address], [address] Glucose 95 70 - 199 mg/dL [facility] [...] classification and Diagnosis of Diabetes Diabetes Care 202; 46: S19-S40. Current interpretive data was last revised 2022. Testing performed by: [address], [address] Calcium 9.7 8.5 - 10.3 mg/dL [facility] Comment:Testing performed by : [address], [address] Bilirubin, total 0.4 0.1 - 1.2 mg/dL [facility] Comment:Testing performed by : [facility], [address], [place]., [address] Protein, pl 7.4 6.5 - 8.5 g/dL [facility] Comment:Testing performed by : [facility], [address] [place] [address]., [address] Albumin 4.6 3.5 - 5.0 g/dL [facility] Comment:Testing performed by : [facility], [address] [place] [address], [address] Alk phos 62 40 - 130 Units/L [facility] Comment:Testing performed by : [facility], [address] [place] [address], [address] ALT 28 7 - 55 Units/L [facility] Comment:Testing performed by : [facility], [address] [place] [address], [address] AST 24 10 - 50 Units/L [facility]) Comment:Testing performed by : [address], [address] Blood 08/13/2024 10:1 5 AM CORPORATE TREASURER 08/13/2024 2:56 PM CORPORATE TREASURER Sara Zambrano STOREKEEPER ENGINEERING LAB BLOOD ORDERABLES Final Result [facility] 1 [facility] Department [place] [address] * PSA screen (01/29/2024 2:06 PM CDT) [...] data last revised 22. Testing performed by: [address], [address] Blood 01/29/2024 2:06 PM CDT 01/29/2024 5:47 PM CDT Bisi Guadarrama STOREKEEPER ENGINEERING LAB BLOOD ORDERABLES Final Result [facility] 1 [facility] Department [place] [address] from Last 3 Months or Most Recently Relevant to Health Maintenance Insurance [employer] MED[employer]ARE GOLD Advance Directives For more information, please contact: [phone] * Full Code (Latest Code Status on File) Date Activated Date Inactivated Comments 09/24/2024 9:28 AM 09/24/2024 4:49 PM * Full Code Date Activated Date Inactivated Comments 09/24/2024 9:28 AM 09/24/2024 9:28 AM Care Teams Paper Twister Tender Relationship Specialty Start Date End Date Allan Denton MD [address] [place] [address] PCP - General 05/18/11
--- OUTSIDE RECORDS SUMMARY | 2024-11-03 08:46 | XMS_ITS | Encounter Summary ---
Author Organization [facility] Address [address] [place] [address] Care Team Providers Care Environmental Resource Specialist Name Role Phone Unavailable Primary Care Provider Unavailabl e Encounter Details Date Type Department Care Team (Late st Contact Info) Description 10/03/2005 Orders Only [facility] Internal Medicine [address] [address] Gabriele Toussaint MD [address] [place] [phone] Social History Tobacco Use Types Packs/Day Years Used Date Smoking Tobacco: Never Assessed Sex and Gender Information Value Date Recorded Sex Assigned at Not on file Legal Sex Male 3:27 AM TOWEL FOLDER Gender Identity Not on file Sexual Orientation Not on file documented as of this encounter Plan of Treatment Not on file documented as of this encounter Visit Diagnoses Not on filedocumented in this encounter
--- OUTSIDE RECORDS SUMMARY | 2024-11-03 08:46 | XMS_ITS | Encounter Summary ---
Author Organization [facility] Address [address] [place] [address] Care Team Providers Care Porter [employer] Car [employer] Name Role Phone Unavailable Primary Care Provider Unavailabl e Encounter Details Date Type Department Care Team (Late st Contact Info) Description 12/23/2003 Outpatient Historical [facility] Internal Medicine [address] [address] Gabriele Toussaint MD [address] [place] [phone] Social History Tobacco Use Types Packs/Day Years Used Date Smoking Tobacco: Never Assessed Sex and Gender Information Value Date Recorded Sex Assigned at Not on file Legal Sex Male 3:27 AM CHIEF RADIATION THERAPIST Gender Identity Not on file Sexual Orientation Not on file documented as of this encounter Plan of Treatment Not on file documented as of this encounter Visit Diagnoses Not on filedocumented in this encounter
[2024-11-03 08:57] VITALS: BP 160/87; PULSE 73; RESP 16; TEMP 36.7; O2SAT 98
--- NOTE | 2024-11-03 09:22 | ED_ITS ---
HPI - General Adult General Chief complaint: Upper Respiratory Infection Stated complaint: congestion,cough Source: patient Mode of arrival: ambulatory Limitations: no limitations History of Present Illness HPI narrative: Patient presents for evaluation of chest congestion and cough. Symptom onset 2 months ago. He recently consumed water and felt like he choked on it. He has noted worsening symptoms since that time. He was exposed to individuals with influenza so his PCP put him on tamiflu, which he started yesterday. He has some mild SOB that is occasional and chronic. He attributes it to his age. No fever, chills, nausea, vomiting or diarrhea. He is a former smoker with quit date about 15 years ago. He had lymphoma in 2008 which was treated with chemo and radiation. Related Data Home Medications ?Medication ?Instructions ?Recorded ?Confirmed ?Last Taken ?Type atorvastatin 20 mg tablet mg 11/03/24 Unknown History hydrochlorothiazide 12.5 mg tablet mg 11/03/24 Unknown History lisinopril 30 mg tablet mg 11/03/24 Unknown History meloxicam 15 mg tablet mg 11/03/24 Unknown History oseltamivir 75 mg capsule mg 11/03/24 Unknown History Allergies Allergy/AdvReac Type Severity Reaction Status Date / Time No Known Allergies Allergy Verified 11/03/24 08:55 Review of Systems Review of Systems: CONSTITUTIONAL: Denies fever, chills, or sweats. EYES: Denies visual changes, redness, or discharge. ENT: Denies rhinorrhea, congestion, sore throat, or otalgia. CARDIOVASCULAR: Denies chest pain, palpitations, or edema. RESPIRATORY: Reports cough and chest congestion. Reports mild, intermittent and chronic SOB GASTROINTESTINAL: Denies abdominal pain, nausea, vomiting, or diarrhea. GENITOURINARY: Denies dysuria or hematuria. SKIN: Denies rash or itching. MUSCULOSKELETAL: Denies back pain, joint pain, or myalgia. NEUROLOGIC: Denies headache, numbness, dizziness, or weakness. PSYCHIATRIC: Denies anxiety or depression. [facility] Past Medical History Medical History Lymphoma Hypertension Surgical History Surgical History No pertinent past surgical history Family History Family History Mother Family history non-contributory Social History Social History (Updated 11/03/24 @ 09:29 by Zachary Blount [facility]) Smoking status: Former smoker Tobacco type: cigarettes Substance use: never Living arrangements: with family Gender identity (if verbalized by the patient): Male Sexual Orientation (if Verbalized by the Patient): Straight or Heterosexual Spiritual care concerns: No Exam Narrative: GENERAL: Well-appearing, well-nourished, and in no acute distress. HEAD: Normocephalic, atraumatic. EYES: PERRLA and EOMI. ENT: Nares clear, no rhinorrhea or epistaxis. Mucous membranes moist. Oropharynx without tonsillar hypertrophy exudate or other lesions. Bilateral TMs pearly cochran nonbulging NECK: Supple. No adenopathy or masses. No carotid bruits or JVD CHEST: Clear to auscultation. No respiratory distress. No wheezes rales or rhonchi HEART: Regular rate and rhythm. No murmur heard. Normal peripheral pulses. ABDOMEN: Soft, nontender, nondistended, normal active bowel sounds. EXTREMITIES: Normal range of motion. No edema. SKIN: Warm, dry, no rash. NEURO: No focal deficits. Alert and oriented x3. PSYCH: Normal mood and affect. Course Course Emergency Course: This is a 64 year old male who presented for evaluation of cough. Influenza and COVID negative. Chest x-ray negative. I recommended he follow up with primary care provider to determine whether additional diagnostic testing including CT scan would be clinically warranted. He indicates that he just had a CT scan of the chest was negative. I did offer to send him home with an antitussive. He declined. Will follow up with primary care provider go to the ER for worsening symptoms. He is in agreement with plan of care. Level of Care: Express Care Visit Vital Signs Vital signs: Vital Signs Temperature 36.7 C 11/03/24 08:57 Pulse Rate 73 11/03/24 08:57 Respiratory Rate 16 11/03/24 08:57 Blood Pressure 160/87 H 11/03/24 08:57 Pulse Oximetry 98 11/03/24 08:57 Oxygen Delivery Room Air 11/03/24 08:57 Temperature 36.7 C 11/03/24 08:57 Pulse Rate 73 11/03/24 08:57 Respiratory Rate 16 11/03/24 08:57 Blood Pressure 160/87 H 11/03/24 08:57 Pulse Oximetry 98 11/03/24 08:57 Oxygen Delivery Room Air 11/03/24 08:57 Medical Decision Making Vital Signs Vital Signs: Vital Signs Temperature 36.7 C 11/03/24 08:57 Pulse Rate 73 11/03/24 08:57 Respiratory Rate 16 11/03/24 08:57 Blood Pressure 160/87 H 11/03/24 08:57 Pulse Oximetry 98 11/03/24 08:57 Oxygen Delivery Room Air 11/03/24 08:57 Temperature 36.7 C 11/03/24 08:57 Pulse Rate 73 11/03/24 08:57 Respiratory Rate 16 11/03/24 08:57 Blood Pressure 160/87 H 11/03/24 08:57 Pulse Oximetry 98 11/03/24 08:57 Oxygen Delivery Room Air 11/03/24 08:57 Lab Data Labs: Lab Results 11/03/24 Range/Units 09:24 POC Influenza A Ag Negative (Negative) POC Influenza B Ag Negative (Negative) POC SARS CoV-2 Ag Negative (Negative) Imaging Data Radiologist's impression: EXAMINATION: XR chest 2V DATE: 11/03/2024 09:24 INDICATION: Cough. TECHNIQUE: Frontal and lateral views of the chest were obtained. COMPARISON: None. FINDINGS: There is no pneumonia, pleural effusion, or pneumothorax. The heart size is normal. IMPRESSION: 1. No acute cardiopulmonary disease. Discharge Plan Discharge Clinical Impression: Chronic cough Patient Disposition: Home, Self-Care Condition: Stable Instructions: Antibiotic Form, Chronic Cough (ED) Patient Language: Korean Prescriptions: No Action atorvastatin 20 mg tablet meloxicam 15 mg tablet oseltamivir 75 mg capsule lisinopril 30 mg tablet hydrochlorothiazide 12.5 mg tablet Follow-up/Referrals: Harms,Allan Peña M.D. [Primary Care Provider] - Time of Disposition: 09:55
[2024-11-03 09:42] LABS: EDCOVIDSCREEN Negative (Negative); EDINFLUASCREEN Negative (Negative); EDINFLUBSCREEN Negative (Negative)
== END 2024-11-03 10:00 | disposition home or self-care (01) ==
PROVIDERS: Emergency Provider Nurse Practitioner; PCP Family Medicine
DX: R05.3 Chronic cough (principal); Z20.822 Contact with and (suspected) exposure to COVID-19; Z87.891 Personal history of nicotine dependence; I10 Essential (primary) hypertension; Z85.72 Personal history of non-Hodgkin lymphomas
CPT/HCPCS: 71046; 87426; 87804; 99203; G0463